=== PATIENT | male | born 1965 | race Two or more races ===

== ENCOUNTER 2020-05-28 07:28 | Day surgery (SDC) | payer BC ==
[2020-05-25 15:03] VITALS: BMI 27.6
[2020-05-28] MEDS ORDERED: LIDOCAINE HCL/PF 2% SDV 5ML VIAL ONE (08:14)
[2020-05-28] MEDS ORDERED: PROPOFOL 20 ML ONE ×3 (08:14)
[2020-05-28 09:17] VITALS: TEMP 98.2
[2020-05-28 09:58] VITALS: BP 144/104; PULSE 62
== END 2020-05-28 10:29 | disposition home or self-care (01) ==
LOC: FASU-ENDO 07:28
PROVIDERS: ATTEND Internal Medicine
PROC: 0DBM8ZX Excision of Descending Colon, Via Natural or Artificial Opening Endoscopic, Diagnostic (ICD-10-PCS; 2020-05-28)
PROC: 0DBK8ZX Excision of Ascending Colon, Via Natural or Artificial Opening Endoscopic, Diagnostic (ICD-10-PCS; principal; 2020-05-28 08:22)
DX: Z12.11 Encounter for screening for malignant neoplasm of colon (principal); D12.2 Benign neoplasm of ascending colon; D12.4 Benign neoplasm of descending colon; K64.8 Other hemorrhoids
CPT/HCPCS: 88305-TC